=== PATIENT | male | born 1990 | race Caucasian/White ===

== ENCOUNTER 2017-05-11 07:07 | Emergency (ER) | payer SELFPAY ==
[~2017-05-11] VITALS: Ht 175.3 cm; Wt 109.0 kg
[2017-05-11 08:35] VITALS: BP 124/72
== END 2017-05-11 09:07 | disposition home or self-care (01) ==
LOC: EMS 07:09
DX: S16.1XXA Strain of muscle, fascia and tendon at neck level, initial encounter (principal); S29.012A Strain of muscle and tendon of back wall of thorax, initial encounter; V49.88XA Car occupant (driver) (passenger) injured in other specified transport accidents, initial encounter; Y93.89 Activity, other specified; Y92.89 Other specified places as the place of occurrence of the external cause; Y99.8 Other external cause status
CPT/HCPCS: 70450; 72125; 72128; 99284